=== PATIENT | female | born 1990 | race Caucasian/White ===

== ENCOUNTER → 2024-03-12 12:02 | Outpatient (REF) | payer OTHER, SELFPAY | LOC: HWRAD 12:02 | PROVIDERS: ATTENDING PHYSICIAN Nurse Practitioner | DX: M79.674 Pain in right toe(s) (principal) | CPT/HCPCS: 73660 ==

== ENCOUNTER 2024-08-16 19:10 | Emergency (ER) | payer OTHER, SELFPAY ==
[2024-08-16 19:10] VITALS: BMI 22.7
[2024-08-16 19:11] VITALS: BP 110/72
--- NOTE | 2024-08-16 20:09 | ED.GENMED ---
History of Present Illness
General
Chief Complaint: Allergic Reaction
Source: patient
Time Seen by Provider: 08/16/24 20:03
History of Present Illness
History of Present Illness:
33-year-old female presenting to the emergency department for evaluation after she has been experiencing hives and various areas of swelling on her body that has been occurring since this past without any reasoning. Patient states that she
has noticed intermittent swelling to her lips, extremities, abdomen with symptoms usually resolving after a few minutes to as many as a few hours. She does note that the areas are mostly pruritic. Patient has been undergoing fertility treatments
and IVF and has been on various different medications including an antibiotic but states she does not believe these to be related and has notified her fertility specialist team and they felt the same. Patient is taking a 5 mg dose of prednisone
currently and is scheduled to be weaned off of this in the coming days. She also has a scheduled follow-up with pattern grader this coming Friday for these appointments. Patient does note a history of asthma but states she has never had any allergic
reactions like this. She denies any fevers or infectious symptoms. Tonight started to have a little bit of respiratory difficulty which is why they presented to the ER but the symptoms are fully resolved at time of my examination.
Past History
Past History
ED Past Medical History: Psychiatric (ADD, anxiety)
ED Past Surgical History: Tonsilectomy (6 days ago) and Other (Breast augmentation)
Social History
Tobacco: Non-smoker
Alcohol: None
Drug: None
Personal:
Living: with family
Employment: Other (Student)
Family History
Family History: Other (IBS)
Review of Systems
Review of Systems
All Other Systems: ROS reviewed and negative except as documented in HPI and ROS
Phy Exam
Physical Exam
Physical Exam:
GENERAL: Alert , in no apparent distress
EYE: conjunctiva clear
NECK: Supple, no significant adenopathy.
ENT: o/p clr, mmm. No oropharyngeal edema
CARDIAC: Regular rate and rhythm
LUNGS: Clear breath sounds bilaterally, no acute respiratory distress, no wheezes/rales/rhonchi
NEUROLOGICAL: Alert and oriented
SKIN: Warm and dry, faint hives to the left lateral thigh
MUSCULOSKELETAL: well perfused.
PSYCH: Normal and appropriate interaction.
Scores
Heart Failure Risk
Heart Failure Risk Score: Not Applicable
Heart Score for Chest Pain Patients
STEMI patient?: Not applicable
Withdrawal Assessment of Alcohol
Withdrawal Assessment Completed?: Not applicable
Course
Orders/Labs/Results
Orders:
Orders
08/16/24 20:26
Test Result ONCE
08/16/24 20:33
Basic Metabolic Panel Urgent
Complete Blood Count/With Diff Urgent
HCG, Serum Qualitative Screen Urgent
Abnormal Lab Results
08/16/24
20:33
WBC 12.5 H 10^3/uL
(4.8-10.8)
MCH 32.3 H pg
(27.0-31.0)
MPV 10.9 H fL
(7.4-10.4)
Abs Immat Gran (auto) 0.1 H 10^3/uL
(0-0.05)
Absolute Neuts (auto) 9.4 H 10^3/uL
(1.4-6.5)
Immature Gran % 0.6 H %
(0-0.5)
Lymphocytes % 18.7 L %
(20.5-51.1)
Glucose 121 H mg/dl
(70-99)
08/16/24 20:33
08/16/24 20:33
Vital Signs
Initial and Last Documented VS:
Initial Vital Signs
Temp Pulse Resp BP Pulse Ox
97.8 F 90 20 110/72 100
08/16/24 19:11 08/16/24 19:11 08/16/24 19:11 08/16/24 19:11 08/16/24 19:11
Last Documented Vital Signs
Temp Pulse Resp BP Pulse Ox
97.8 F 90 20 107/69 96
08/16/24 19:11 08/16/24 19:11 08/16/24 19:11 08/16/24 21:52 08/16/24 21:52
MDM/Problems Addressed
Differential Diagnosis Includes:
Hives unspecified, currently no symptoms to suggest acute angioedema, no signs of infectious etiology
MDM/Problems Addressed:
33-year-old female presenting to the emergency department for evaluation of hives that have been waxing and waning since this past , patient is on multiple medications due to her fertility treatments but has been on these medications for an
extended period of time so this thought to be less likely related to this. Currently no signs of anaphylaxis did review patient's images on her phone with her from when she did have some lip swelling and this was quite prominent. Will check labs
here. Patient has an appointment already scheduled with pattern grader. Will discuss risk first benefit of starting a short burst course of steroids, Benadryl and Pepcid. Will also provide with EpiPen for discharge home. Patient also requesting a new
inhaler as the one that she currently has is .
*Pulse Oximetry
Patient hypoxic: no
*Critical Care Note
Total Time (30-74mins, 75-104mins- exclusive of procedures): Not Applicable
Patient Management
Escalation/DeEscalation of care consider admission/obs:
Patient's labs do reveal a mild leukocytosis which is likely related to the current low-dose steroid use. Labs are otherwise unremarkable. Patient to contact her reproductive office tomorrow to see if they are okay with her taking a higher dose of
steroid. She also has the already arranged appointment with pattern grader this coming Friday. Aware of return precautions to the ER. Stable for discharge home.
ED Attending Note
-
Portions of this chart may have been created with voice recognition software.� Occasional wrong word or��sound alike� substitutions may have occurred due to the inherent limitations of voice recognition software.
Discharge Plan
Departure
Patient Disposition: Home (Routine Discharge)
Date of Disposition: 08/16/24
Time of Disposition: 21:47
Patient with high blood pressure during this ER visit?: No
Discharge Problem:
Urticaria
Instructions: Hives (DC)
Prescriptions:
New
epinephrine 0.3 mg/0.3 mL auto-injector
0.3 ml IM Q5-15M PRN (Reason: anaphylaxis) Qty: 2 0RF
albuterol sulfate 90 mcg/actuation HFA aerosol inhaler
2 puff inhalation Q6H PRN (Reason: shortness of breath or wheezing) Qty: 6.7 0RF
prednisone 50 mg tablet
50 mg PO DAILY Qty: 5 0RF
No Action
PNV cmb#95-ferrous fumarate-FA [] 1 EACH tablet
1 ea PO DAILY
Valtrex
1 g PO DAILY
acetaminophen 325 mg Tablet
650 mg PO Q4HPRN PRN (Reason: mild pain) Qty: 0 0RF
ibuprofen 600 mg Tablet
600 mg PO Q6HPRN PRN (Reason: moderate pain/cramps) Qty: 0 0RF
Referrals:
Dorcas Gaspar MD [Family Provider] -
Interventions
Interventions:
*Risk Screen - Suicide Last Done: 08/16/24 19:11
*General Assessment Last Done: 08/16/24 20:40
*Neglect/Abuse Screening Last Done: 08/16/24 19:11
*ED COVID-19 Vaccine History Last Done: 08/16/24 20:40
*Nursing Disposition Last Done: 08/16/24 21:59
ED- Cardiac Assessment Last Done: 08/16/24 20:41
ED- Pulmonary Assessment Last Done: 08/16/24 20:41
ED-Skin Assessment Last Done: 08/16/24 20:42
Discharge Date and Time
Discharge Date/Time: 08/16/24 22:00
Print Language: IVORIAN
[2024-08-16 20:26] VITALS: BP 115/83
[2024-08-16 20:41] LABS: % Basophils 0.4 % (0-2); % Immature Granulocytes 0.6 % (0-0.5); % Lymphocytes 18.7 % (20.5-51.1); % Monocytes 4.2 % (1.7-9.3); % Neutrophils 75.1 % (42.2-75.2); Absolute Basophils 0.1 10^3/uL (0-0.2); Absolute Eosinophils 0.1 10^3/uL (0-0.7); Absolute Immature Granulocytes 0.1 10^3/uL (0-0.05); Absolute Lymphocytes 2.4 10^3/uL (1.2-3.4); Absolute Monocytes 0.5 10^3/uL (0.1-0.6); Absolute Neutrophils 9.4 10^3/uL (1.4-6.5); Hematocrit 39.2 % (37.0-47.0); Hemoglobin 13.6 g/dL (12.0-16.0); Mean Corp Hgb Conc. 34.7 g/dL (33.0-37.0); Mean Corpuscular Hgb 32.3 pg (27.0-31.0); Mean Corpuscular Volume 93.1 fL (81.0-99.0); Mean Platelet Volume 10.9 fL (7.4-10.4); Nucleated Red Blood Cells % 0 %; Platelet Count 236 10^3/uL (130-400); Red Blood Cell Count 4.21 10^6/uL (4.20-5.40); Red Cell Dist. Width 12.1 % (11.5-14.5); White Blood Cell Count 12.5 10^3/uL (4.8-10.8)
[2024-08-16 21:00] VITALS: BP 104/68
[2024-08-16 21:05] LABS: HCG, Serum Qualitative Screen Negative
[2024-08-16 21:16] LABS: Blood Urea Nitrogen 16 mg/dl (7-17); Calcium 9.5 mg/dl (8.4-10.2); Carbon Dioxide 27 mmol/L (22-30); Chloride 98 mmol/L (98-107); Estimated Creatinine Clearance 91 ml/min; Glucose 121 mg/dl (70-99); Potassium 4.2 mmol/L (3.5-5.1); Sodium 138 mmol/L (135-145); eGFR > 60.00
[2024-08-16 21:52] VITALS: BP 107/69
== END 2024-08-16 22:00 | disposition home or self-care (01) ==
LOC: EMR 19:10
PROVIDERS: Physician Assistant Medical; EMERGENCY PHYSICIAN Emergency Medicine; FAMILY PHYSICIAN Internal Medicine
DX: L50.9 Urticaria, unspecified (principal)
CPT/HCPCS: 99283; 80048; 84703; 85025

== ENCOUNTER → 2025-05-25 16:46 | Outpatient (REF) | payer BC, OTHER, SELFPAY | LOC: RAD 16:46 | PROVIDERS: ATTENDING PHYSICIAN Obstetrics & Gynecology; FAMILY PHYSICIAN Obstetrics & Gynecology | DX: Z34.81 Encounter for supervision of other normal pregnancy, first trimester (principal); O36.80X1 Pregnancy with inconclusive fetal viability, fetus 1 | CPT/HCPCS: 36415; 76801; 86850; 86900; 86901; J2790 ==

== ENCOUNTER → 2025-05-26 13:46 | Outpatient (REF) | payer BC, OTHER, SELFPAY | LOC: PNTC 13:46 | PROVIDERS: ATTENDING PHYSICIAN Obstetrics & Gynecology | DX: Z36.0 Encounter for antenatal screening for chromosomal anomalies (principal); Z36.82 Encounter for antenatal screening for nuchal translucency | CPT/HCPCS: 36415; 76801; 76813; 96372 ==

== ENCOUNTER → 2025-06-28 13:43 | Outpatient (REF) | payer BC, OTHER, SELFPAY | LOC: PNTC 13:43 | PROVIDERS: ATTENDING PHYSICIAN Obstetrics & Gynecology | DX: O09.812 Supervision of pregnancy resulting from assisted reproductive technology, second trimester (principal) | CPT/HCPCS: 76805 ==

== ENCOUNTER → 2025-07-25 06:53 | Outpatient (REF) | payer BC, OTHER, SELFPAY | LOC: PNTC 06:53 | PROVIDERS: ATTENDING PHYSICIAN Obstetrics & Gynecology | DX: O09.812 Supervision of pregnancy resulting from assisted reproductive technology, second trimester (principal); Z36.86 Encounter for antenatal screening for cervical length | CPT/HCPCS: 76811; 76817 ==

== ENCOUNTER → 2025-09-01 13:11 | Outpatient (REF) | payer BC, OTHER, SELFPAY | LOC: PNTC 13:11 | PROVIDERS: ATTENDING PHYSICIAN Obstetrics & Gynecology | DX: O09.812 Supervision of pregnancy resulting from assisted reproductive technology, second trimester (principal) | CPT/HCPCS: 76816 ==

== ENCOUNTER → 2025-09-19 08:01 | Outpatient (REF) | payer BC, OTHER, SELFPAY | LOC: PNTC 08:01 | PROVIDERS: ATTENDING PHYSICIAN Obstetrics & Gynecology | DX: Z34.92 Encounter for supervision of normal pregnancy, unspecified, second trimester (principal) | CPT/HCPCS: 36415; 86850; 86900; 86901; 96372; J2790 ==